=== PATIENT | male | born 2000 | race Caucasian/White ===

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

== ENCOUNTER 2018-06-20 16:31 | Emergency (ER) | payer OTHER ==
[~2018-06-20] VITALS: Wt 100.0 kg
[~2018-06-20 16:31] MED LIST: CEPH-443 PO; IBUP-1542 PO
--- NOTE | 2018-06-20 19:41 | ERD ---
ER Documentation Chief Complaint Chief Complaint r. earache HPI This is an otherwise healthy 18 year old M who presents to the ED with complaints of progressively worsening R ear pain x 5 days. Pt reports intermittent watery discharge and tinnitis of this R ear for the past 2 days, prompting his visit here. He denies any trauma. Denies any muffled hearing, fevers, chills, dizziness, vertigo, neck pain/stiffness or any other sx. Pt is otherwise healthy with no other complaints. ROS All systems reviewed and are negative except as per history of present illness. Medications Home Meds Active Scripts Ofloxacin Otic (Ofloxacin Otic) 5 Ml Drops, 10 DROP LEFT EAR DAILY for 7 Days, #1 BOTTLE Prov:BRENDAIGRRIVER JOYNER PA-C 06/20/18 Ibuprofen* (Motrin*) 600 Mg Tab, 600 MG PO Q6, #30 TAB Prov:ANNA CROWE PA-C 12/08/17 Cephalexin* (Keflex*) 500 Mg Capsule, 500 MG PO QID for 7 Days, CAP Prov:ANNA CROWE PA-C 12/08/17 PMhx/Soc Medical and Surgical Hx: pt denies Medical Hx, pt denies Surgical Hx Hx Alcohol Use: No Hx Substance Use: No Hx Tobacco Use: No Smoking Status: Never smoker Physical Exam Vitals Vital Signs Date Temp Pulse Resp B/P (MAP) Pulse Ox O2 O2 Flow FiO2 Time Delivery Rate 06/20/18 98.8 74 18 124/66 97 Room Air 19:49 (85) 06/20/18 97.8 90 20 143/67 100 17:05 (92) Physical Exam Const: No acute distress Head: Atraumatic Eyes: Normal Conjunctiva ENT: + Right auditory ear canal erythematous, no otorrhea, pain with manipulation of the pinna. Tenderness to palpation right preauricular area, no erythema, no edema. Bilaterl TMs normal. Neck: Full range of motion. No meningismus. Skin: No petechiae or rashes Neur: Awake and alert Psych: Normal Mood and Affect Procedures/MDM This is an otherwise healthy 18 year old M who presents to the ED with an apparent otitis externa of the right ear. I have low suspicion for malignant otitis externa, perforated TM, mastoiditis, meningitis or deep space tissue infection. I will treat pt with a prescription for abx ear drops. He was told to follow up with his PCP in 2 days, otherwise return to the ED for any new or worsening symptoms. All questions answered prior to discharge. 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 Departure Diagnosis: Primary Impression: Right otitis externa Otitis externa type: unspecified type Chronicity: acute Qualified Codes: H60.501 - Unspecified acute noninfective otitis externa, right ear Condition: Stable Referrals: [facility] Additional Instructions: Thank you very much for allowing us to participate in your care. Your health and safety is our top priority at [facility]. Call your primary care doctor TOMORROW for an appointment during the next 2-4 days and bring all the information and medications prescribed. If the symptoms get worse and your provider is unavailable, return to the Emergency Department immediately. RIVER LOYA PA-C Jun 20, 2018 19:41
[2018-06-20] MEDS ORDERED: OFLO5DRO7 LEFT EAR (19:42)
[2018-06-20 19:49] VITALS: BP 124/66; PULSE 74; RESP 18
== END 2018-06-20 19:55 | disposition home or self-care (01) ==
LOC: FTE 16:31
DX: H60.501 Unspecified acute noninfective otitis externa, right ear (principal)
CPT/HCPCS: 99283